=== PATIENT | female | born 1935 | race Caucasian/White ===

== ENCOUNTER → 2016-11-14 | Outpatient (CLI) | payer MEDICARE, OTHER ==
[~2016-11-14] VITALS: Ht 160 cm; Wt 77.1 kg
[~2016-11-14] MED LIST: K-DUR TAB 10 M10 MEQ PO
== END ==
LOC: OPSV 11:52
DX: M81.0 Age-related osteoporosis without current pathological fracture (principal)
CPT/HCPCS: 96365; J3489; J7050

== ENCOUNTER → 2020-10-11 | Outpatient (CLI) | payer MEDICARE, OTHER | LOC: KOH-I 13:20 | DX: J32.9 Chronic sinusitis, unspecified (principal); J34.2 Deviated nasal septum | CPT/HCPCS: 70486 ==

== ENCOUNTER → 2021-03-30 | Outpatient (CLI) | payer MEDICARE, OTHER | LOC: OPSV 13:35 | DX: M81.0 Age-related osteoporosis without current pathological fracture (principal) | CPT/HCPCS: 96365; J3489 ==

== ENCOUNTER 2021-06-08 20:45 | Emergency (ER) | payer MEDICARE, OTHER | END 2021-06-08 23:55 | disposition home or self-care (01) | LOC: ER1 20:45 | DX: M79.662 Pain in left lower leg (principal); I10 Essential (primary) hypertension; E78.5 Hyperlipidemia, unspecified; Z90.89 Acquired absence of other organs; Z90.710 Acquired absence of both cervix and uterus; Z88.2 Allergy status to sulfonamides | CPT/HCPCS: 85379; 85610; 85730; 96372; 99283; J1650 ==

== ENCOUNTER → 2021-06-09 | Outpatient (CLI) | payer MEDICARE, OTHER | LOC: KOH-I 14:50 | DX: M79.661 Pain in right lower leg (principal); M79.662 Pain in left lower leg; I82.812 Embolism and thrombosis of superficial veins of left lower extremity | CPT/HCPCS: 93970 ==

== ENCOUNTER → 2021-07-25 | Outpatient (CLI) | payer MEDICARE, OTHER | LOC: KOH-I 11:00 | DX: R05.9 Cough, unspecified (principal) | CPT/HCPCS: 71046 ==

== ENCOUNTER → 2021-11-03 | Outpatient (CLI) | payer MEDICARE, OTHER ==
[2021-11-03 12:26] LABS: HEMOGLOBIN 14.5 gm/dl (12.3-15.3); RED BLOOD COUNT 4.56 M/UL (4.00-5.10); WHITE BLOOD COUNT 7.5 K/UL (4.5-11.0)
[2021-11-03 12:53] LABS: BUN/CREATININE RATIO 19 (0-10)
== END ==
LOC: LAB 11:54
PROVIDERS: Nurse Practitioner Family
DX: R07.89 Other chest pain (principal); I10 Essential (primary) hypertension
CPT/HCPCS: 36415; 80053; 82550; 82553; 84484; 85027

== ENCOUNTER → 2021-12-06 | Outpatient (CLI) | payer MEDICARE, OTHER | LOC: CT 08:16 | PROVIDERS: Internal Medicine | DX: R10.12 Left upper quadrant pain (principal); R63.4 Abnormal weight loss; R63.0 Anorexia | CPT/HCPCS: 36415; 80048; Q9967 ==